=== PATIENT | female | born 1970 ===

== ENCOUNTER 2023-10-21 13:10 | Outpatient (AMB) | payer OTHER, SELFPAY ==
[2023-10-21 13:48] VITALS: BP 128/74; RESP 14; TEMP 36.5; O2SAT 98; BMI 33.0
--- NOTE | 2023-10-21 13:51 | MHC.OFFWIV ---
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 Her symptoms started 3 days ago after she was mowing her mother's lawn. She states it started directly towards the end of mowing the lawn. She says that the lawn was very tall with a lot of weeds. She states that she broke out in a bumpy rash on her arms that then spread to her legs, abdomen and back. She states initially it was weepy but that has since crusted over. She has not tried anything for this. No fevers or chills. No change in hygiene products or medications. [facility] Medical History Coccygeal injury Hand pain, left Knee pain Scoliosis Family History Mother Hypertension Hyperlipemia Blind hypertensive eye, left No family history of mental disorder Social History Household Members: Spouse and Children Housing: House Alcohol intake: never Patient Tobacco Use Status: Never used Tobacco e-Cigarette/Vaping Use: Never Used Current occupational status: employed Current occupation: [employer] Physical Exam Vital Signs: Last Vital Signs Temp 97.7 F 10/21/23 13:48 Resp 14 10/21/23 13:48 BP 128/74 10/21/23 13:48 Pulse Ox 98 10/21/23 13:48 Oxygen Delivery Method Room Air 10/21/23 13:48 BMI result Body Mass Index 33.0 Const Orientation/consciousness: patient oriented x3 HEENT Ears: hearing grossly normal bilaterally Neck Thyroid: Thyroid normal Lymphatic: no lymphadenopathy noted Resp Auscultation: clear to auscultation bilaterally Cardio Rate: regular rate Rhythm: regular rhythm Heart sounds: S1 normal heart sound present and S2 normal heart sound present Skin Other: There is a papular rash noted on the bilateral upper extremities with areas of excoriations noted. A similar appearing noted on the bilateral legs and to a lesser extent on the anterior and posterior trunk. Neuro General: patient oriented x3, gait normal and no focal motor deficits Assessment & Plan Assessment & Plan (1) Allergic contact dermatitis: Code(s): L23.9 - Allergic contact dermatitis, unspecified cause Plan: will start pred taper and benadryl q 8 hrs as needed. We discussed risks and benefits and adverse effects of this medication. She will follow up if no improvement or if anything worsens or changes. A prescription for triamcinolone cream was also provided to use over the rash. Patient understands and agrees with this plan. Medications: New diphenhydramine HCl (Benadryl Allergy) 25 mg PO TID 10 days PRN 30 tabs 0RF allergy symptoms triamcinolone acetonide 0.025% 1 appl topical BID 10 days 80 grams 1RF prednisone take 3 tab po x 3 days, take 2 tab po x 3 days, take 1 tab po x 3 days; 18 tabs 0RF Coding Level of Care Code Est Pt Level 3 (87131) Diagnoses Allergic contact dermatitis L23.9
== END 2023-10-21 14:22 | disposition home or self-care (01) ==
PROVIDERS: PCP Hospitalist; Visit Provider Physician Assistant
DX: L23.9 Allergic contact dermatitis, unspecified cause (principal)
CPT/HCPCS: 99213